=== PATIENT | male | born 1995 | race African-American/Black ===

== ENCOUNTER 2018-07-19 16:09 | Emergency (ER) | payer SELFPAY ==
[~2018-07-19] VITALS: Ht 172.7 cm; Wt 80.0 kg
[2018-07-19] MEDS ORDERED: IBUPROFEN 600MG TABLET PO ONE (17:15)
[2018-07-19 18:07] VITALS: BP 122/59
== END 2018-07-19 18:09 | disposition home or self-care (01) ==
LOC: ER 16:09
DX: S93.402A Sprain of unspecified ligament of left ankle, initial encounter (principal); V29.88XA Motorcycle rider (driver) (passenger) injured in other specified transport accidents, initial encounter; Y93.89 Activity, other specified; Y92.488 Other paved roadways as the place of occurrence of the external cause
CPT/HCPCS: 73610; 99283

== ENCOUNTER 2021-01-15 00:36 | Emergency (ER) | payer MEDICAID, OTHER ==
[~2021-01-15] VITALS: Ht 170.2 cm; Wt 54.0 kg
[2021-01-15] MEDS ORDERED: FAMO-135 MT (01:15)
[2021-01-15 01:18] VITALS: BP 120/60
== END 2021-01-15 01:51 | disposition home or self-care (01) ==
LOC: ER 00:36
DX: R10.9 Unspecified abdominal pain (principal); R11.10 Vomiting, unspecified
CPT/HCPCS: 99283

== ENCOUNTER 2021-01-24 21:31 | Emergency (ER) | payer MEDICAID ==
[~2021-01-24] VITALS: Ht 170.2 cm; Wt 65.0 kg
[~2021-01-24 21:31] MED LIST: FAMO-135 MT
[2021-01-25 01:12] LABS: BASOPHILS % 0.5 % (0.0-2.0); HEMOGLOBIN. 16.6 g/dL (14.0-18.0); LYMPHOCYTES % 13.7 % (20.0-50.0); MEAN CORPUSCULAR HEMOGLOBIN 27.8 pg (28.0-32.0); MEAN PLATELET VOLUME 9.4 fl (7.4-10.4); MONOCYTES % 5.8 % (2.0-8.0); PLATELET 266 x1000/uL (130-400); RED BLOOD CELL COUNT 5.97 mill/uL (4.7-6.1); RED CELL DISTRIBUTION WIDTH 13.3 % (11.6-14.6)
[2021-01-25 01:16] LABS: CHLORIDE 103 mEq/L (98-107)
[2021-01-25 01:21] LABS: ETHANOL BLOOD < 10 mg/dL
[2021-01-25 02:42] LABS: CLARITY URINE CLEAR (CLEAR); COLOR URINE YELLOW (YELLOW); KETONES URINE 4+ (NEGATIVE); LEUKOCYTE ESTERASE URINE NEGATIVE (NEGATIVE); NITRITE URINE NEGATIVE (NEGATIVE); OCCULT BLOOD URINE NEGATIVE (NEGATIVE); PH URINE 5.5 (4.5-8.0); PROTEIN URINE NEGATIVE (NEGATIVE); SPECIFIC GRAVITY URINE 1.016 (1.005-1.030); UROBILINOGEN URINE 0.2 E.U./dL (0.2-1.0)
[2021-01-25 03:21] LABS: *AMPHETAMINES SCREEN URINE NEGATIVE (NEGATIVE); *BARBITURATES SCREEN URINE NEGATIVE (NEGATIVE); *BENZODIAZEPINES SCREEN URINE NEGATIVE (NEGATIVE); METHADONE URINE SCREEN NEGATIVE (NEGATIVE)
[2021-01-25 03:22] LABS: CANNABINOID URINE SCREEN PRESUMTIVE POSITIVE (NEGATIVE); OPIATES URINE SCREEN NEGATIVE (NEGATIVE); PHENCYCLIDINE URINE SCREEN NEGATIVE (NEGATIVE)
[2021-01-25 03:23] LABS: *COCAINE SCREEN URINE NEGATIVE (NEGATIVE)
[2021-01-25] MEDS ORDERED: OLANZAPINE 5MG TABLET PO SCH (04:30)
[2021-01-25] MEDS: OLANZAPINE 5MG TABLET ODT PO SCH (10:26)
[2021-01-25] MEDS: VALPROATE SODIUM 250MG/5ML UDC PO SCH ×2 (10:26→17:42)
[2021-01-26] MEDS: OLANZAPINE 5MG TABLET ODT PO SCH (09:17)
[2021-01-26] MEDS: VALPROATE SODIUM 250MG/5ML UDC PO SCH ×2 (09:38→17:23)
[2021-01-26] MEDS ORDERED: DIPHENHYDRAMINE 50MG CAPSULE PO ONE (20:45)
[2021-01-27] MEDS: OLANZAPINE 5MG TABLET ODT PO SCH (08:45)
[2021-01-27] MEDS: VALPROATE SODIUM 250MG/5ML UDC PO SCH (08:45)
[2021-01-27 12:30] VITALS: BP 115/74
== END 2021-01-27 13:11 ==
LOC: ER 21:31
DX: F23 Brief psychotic disorder (principal); R45.850 Homicidal ideations; Z20.822 Contact with and (suspected) exposure to COVID-19; F31.64 Bipolar disorder, current episode mixed, severe, with psychotic features; Z63.79 Other stressful life events affecting family and household; F12.90 Cannabis use, unspecified, uncomplicated; Z71.89 Other specified counseling
CPT/HCPCS: 99285; Q0163

== ENCOUNTER 2021-08-06 13:13 | Emergency (ER) | payer MEDICAID ==
[~2021-08-06] VITALS: Ht 177.8 cm; Wt 64.0 kg
[2021-08-06] MEDS ORDERED: TOPUD MT (16:58)
[2021-08-06 17:40] VITALS: BP 132/79
[2021-08-08] MEDS ORDERED: HYDR-4001 MT (15:24)
== END 2021-08-06 17:46 | disposition home or self-care (01) ==
LOC: ER 13:13
DX: F07.81 Postconcussional syndrome (principal)
CPT/HCPCS: 99284

== ENCOUNTER 2021-11-27 22:08 | Emergency (ER) | payer MEDICAID ==
[~2021-11-27] VITALS: Ht 167.6 cm; Wt 55.0 kg
[~2021-11-27 22:08] MED LIST changes: +TOPUD MT
[2021-11-28] MEDS ORDERED: MAGNESIUM/ALUMINUM HYDROXIDE/SIMETHICONE 30ML UDC PO STA (06:46)
[2021-11-28 08:28] LABS: BASOPHILS % 0.3 % (0.0-2.0); EOSINOPHILS % 0.2 % (0.0-5.0); HEMATOCRIT. 47.2 % (42.0-52.0); HEMOGLOBIN. 16.9 g/dL (14.0-18.0); LYMPHOCYTES % 14.2 % (20.0-50.0); MEAN CORPUSCULAR HEMOGLOBIN 27.7 pg (28.0-32.0); MEAN CORPUSCULAR VOLUME 77.3 fL (80.0-94.0); MEAN PLATELET VOLUME 9.7 fl (7.4-10.4); MONOCYTES % 5.4 % (2.0-8.0); NEUTROPHILS % 79.9 % (40.0-76.0); PLATELET 266 x1000/uL (130-400); RED CELL DISTRIBUTION WIDTH 13.6 % (11.6-14.6)
[2021-11-28 08:34] LABS: CHLORIDE 98 mEq/L (98-107)
[2021-11-28 08:41] LABS: ETHANOL BLOOD < 10 mg/dL
[2021-11-28] MEDS ORDERED: POTASSIUM CHLORIDE 20MEQ TABLET SR PO ONE (08:45)
[2021-11-28 09:52] VITALS: BP 115/64
== END 2021-11-28 09:53 | disposition home or self-care (01) ==
LOC: ER 22:08
DX: R53.1 Weakness (principal); E87.6 Hypokalemia; R10.13 Epigastric pain; R53.83 Other fatigue; R42 Dizziness and giddiness; F20.9 Schizophrenia, unspecified; Z91.14 Patient's other noncompliance with medication regimen
CPT/HCPCS: 36415; 71045; 80053; 80320; 85025; 99284; G0480

== ENCOUNTER 2021-12-01 09:42 | Emergency (ER) | payer MEDICAID ==
[~2021-12-01] VITALS: Ht 170.2 cm; Wt 59.0 kg
[2021-12-01] MEDS ORDERED: HALOPERIDOL LACTATE 5MG/ML VIAL IM STA (10:24)
[2021-12-01] MEDS ORDERED: OLANZAPINE 10 MG/VIAL IM ONE (11:00)
[2021-12-01 12:04] LABS: CHLORIDE 98 mEq/L (98-107)
[2021-12-01 12:10] LABS: BASOPHILS % 0.3 % (0.0-2.0); EOSINOPHILS % 0.2 % (0.0-5.0); HEMATOCRIT. 43.9 % (42.0-52.0); HEMOGLOBIN. 15.7 g/dL (14.0-18.0); LYMPHOCYTES % 9.5 % (20.0-50.0); MEAN CORPUSCULAR HEMOGLOBIN 27.5 pg (28.0-32.0); MEAN PLATELET VOLUME 10.3 fl (7.4-10.4); MONOCYTES % 5.8 % (2.0-8.0); NEUTROPHILS % 84.2 % (40.0-76.0); PLATELET 207 x1000/uL (130-400); RED CELL DISTRIBUTION WIDTH 13.3 % (11.6-14.6)
[2021-12-01 12:12] LABS: ETHANOL BLOOD < 10 mg/dL
[2021-12-01] MEDS ORDERED: POTASSIUM CHLORIDE 20MEQ TABLET SR PO ONE (15:00)
[2021-12-01] MEDS ORDERED: HALOPERIDOL LACTATE 5MG/ML VIAL IM ONE ×2 (15:45→23:15)
[2021-12-01] MEDS: POTASSIUM CHLORIDE 20MEQ TABLET SR PO NR ×2 (16:53→19:23)
[2021-12-01 17:43] LABS: CLARITY URINE CLEAR (CLEAR); COLOR URINE DARK YELLOW (YELLOW); KETONES URINE 3+ (NEGATIVE); LEUKOCYTE ESTERASE URINE NEGATIVE (NEGATIVE); NITRITE URINE NEGATIVE (NEGATIVE); OCCULT BLOOD URINE NEGATIVE (NEGATIVE); PROTEIN URINE 2+ (NEGATIVE); SPECIFIC GRAVITY URINE 1.033 (1.005-1.030)
[2021-12-01 18:10] LABS: *AMPHETAMINES SCREEN URINE NEGATIVE (NEGATIVE); *BARBITURATES SCREEN URINE NEGATIVE (NEGATIVE); *BENZODIAZEPINES SCREEN URINE NEGATIVE (NEGATIVE); *COCAINE SCREEN URINE NEGATIVE (NEGATIVE); CANNABINOID URINE SCREEN PRESUMTIVE POSITIVE (NEGATIVE); METHADONE URINE SCREEN NEGATIVE (NEGATIVE); OPIATES URINE SCREEN NEGATIVE (NEGATIVE); PHENCYCLIDINE URINE SCREEN NEGATIVE (NEGATIVE)
[2021-12-02] MEDS ORDERED: HALOPERIDOL LACTATE 5MG/ML VIAL IM ONE (00:30)
[2021-12-02] MEDS ORDERED: DIAZEPAM 5 MG/ML 2ML CPJ IM ONE (00:30)
[2021-12-02] MEDS ORDERED: DIPHENHYDRAMINE 50MG/ML VIAL IM ONE (00:45)
[2021-12-02] MEDS ORDERED: OLANZAPINE 10 MG/VIAL IM ONE (06:45)
[2021-12-02] MEDS ORDERED: MIDAZOLAM HCL 2 MG/2 ML VIAL IM ONE (06:45)
[2021-12-02] MEDS: OLANZAPINE 5MG TABLET ODT PO SCH (17:24)
[2021-12-02] MEDS ORDERED: QUETIAPINE FUMARATE 50MG TABLET PO STA (19:40)
[2021-12-02] MEDS ORDERED: QUETIAPINE FUMARATE 50MG TABLET PO NR (22:45)
[2021-12-03] MEDS ORDERED: ZIPRASIDONE MESYLATE 20MG/VIAL IM ONE (02:15)
[2021-12-03] MEDS: OLANZAPINE 5MG TABLET ODT PO SCH (08:25)
[2021-12-03 11:11] VITALS: BP 128/90
== END 2021-12-03 11:31 ==
LOC: ER 09:51
DX: F29 Unspecified psychosis not due to a substance or known physiological condition (principal); F20.9 Schizophrenia, unspecified; F31.9 Bipolar disorder, unspecified; Z20.822 Contact with and (suspected) exposure to COVID-19
CPT/HCPCS: 36415; 80053; 80305; 80307; 80320; 80329; 81003; 85025; 96372; 99285; C9803; J1200; J1630; J2250; J3486; J3490; U0003; U0005; Z7610; G0480

== ENCOUNTER 2022-05-11 02:29 | Emergency (ER) | payer MEDICAID ==
[~2022-05-11] VITALS: Ht 162.6 cm; Wt 54.1 kg
[2022-05-11 02:43] VITALS: BP 120/85
== END 2022-05-11 03:17 | disposition left against medical advice (07) ==
LOC: ER 02:29
DX: Z53.21 Procedure and treatment not carried out due to patient leaving prior to being seen by health care provider (principal)

== ENCOUNTER 2024-09-13 22:16 | Emergency (ER) | payer MEDICAID, OTHER ==
[~2024-09-13] VITALS: Ht 165.1 cm; Wt 59.0 kg
[2024-09-13 22:44] VITALS: O2SAT 98
[2024-09-14 00:01] LABS: CLARITY URINE CLEAR (CLEAR); COLOR URINE DARK YELLOW (YELLOW); GLUCOSE URINE NEGATIVE (NEGATIVE); KETONES URINE TRACE (NEGATIVE); LEUKOCYTE ESTERASE URINE NEGATIVE (NEGATIVE); NITRITE URINE NEGATIVE (NEGATIVE); OCCULT BLOOD URINE NEGATIVE (NEGATIVE); PH URINE 5.5 (4.5-8.0); PROTEIN URINE 1+ (NEGATIVE); SPECIFIC GRAVITY URINE 1.035 (1.005-1.030)
[2024-09-14 00:08] LABS: *AMPHETAMINES SCREEN URINE NEGATIVE (NEGATIVE); *BARBITURATES SCREEN URINE NEGATIVE (NEGATIVE); *BENZODIAZEPINES SCREEN URINE NEGATIVE (NEGATIVE); *COCAINE SCREEN URINE NEGATIVE (NEGATIVE); METHADONE URINE SCREEN NEGATIVE (NEGATIVE); OPIATES URINE SCREEN NEGATIVE (NEGATIVE)
[2024-09-14 00:09] LABS: BASOPHILS % 0.5 % (0.0-2.0); DIFFERENTIAL COMMENT 0; EOSINOPHILS % 1.5 % (0.0-5.0); HEMATOCRIT. 43.7 % (42.0-52.0); HEMOGLOBIN. 15.6 g/dL (14.0-18.0); LYMPHOCYTES % 19.7 % (20.0-50.0); MEAN CORPUSCULAR HEMOGLOBIN 28.6 pg (28.0-32.0); MEAN CORPUSCULAR HGB CONC 35.8 g/dL (31.0-37.0); MEAN CORPUSCULAR VOLUME 79.9 fL (80.0-94.0); MEAN PLATELET VOLUME 9.1 fl (7.4-10.4); MONOCYTES % 7.8 % (2.0-8.0); NEUTROPHILS % 70.5 % (40.0-76.0); PLATELET 231 x1000/uL (130-400); RED BLOOD CELL COUNT 5.48 mill/uL (4.7-6.1); RED CELL DISTRIBUTION WIDTH 14.4 % (11.6-14.6); WHITE BLOOD COUNT 12.1 x1000/uL (4.5-11.0)
[2024-09-14 00:09] LABS: CANNABINOID URINE SCREEN PRESUMPTIVE POSITIVE (NEGATIVE); ECSTASY MDMA SCREEN URINE NEGATIVE (NEGATIVE); PHENCYCLIDINE URINE SCREEN NEGATIVE (NEGATIVE)
[2024-09-14 00:11] LABS: CHLORIDE 105 mEq/L (98-107); POTASSIUM 3.5 mEq/L (3.5-5.1); SODIUM 140 mEq/L (136-145)
[2024-09-14 00:12] LABS: CALCIUM 10.3 mg/dL (8.7-10.4); CARBON DIOXIDE 26 mEq/L (21-32)
[2024-09-14 00:17] LABS: CREATININE 0.9 mg/dL (0.6-1.3); GLUCOSE 95 mg/dL (70-105); UREA NITROGEN BLOOD 8 mg/dL (9-23)
[2024-09-14 00:18] LABS: ETHANOL BLOOD < 10 mg/dL (<10)
[2024-09-14 00:19] LABS: ACETAMINOPHEN < 2 ug/mL (10-30)
[2024-09-14 00:28] LABS: SQUAMOUS EPITHELIAL CELL URINE NONE SEEN /lpf (RARE/1+); WBC URINE 0-2 /hpf (0-2)
[2024-09-14 00:29] LABS: BACTERIA URINE NONE SEEN; CALCIUM OXALATE CRYSTALS URINE 1+ /lpf
[2024-09-14 00:30] LABS: MUCUS URINE 2+ /lpf (NONE/TRACE)
[2024-09-14] MEDS ORDERED: LORAZEPAM 2MG/ML INJ IM ONE (11:15)
[2024-09-14] MEDS: LORAZEPAM 2MG/ML UD SYRINGE IM NR (11:26)
[2024-09-14] MEDS: OLANZAPINE 10 MG/VIAL IM ONE ×2 (11:26→21:19)
[2024-09-14] MEDS: DIPHENHYDRAMINE 50MG/ML VIAL IM ONE (21:19)
[2024-09-14 21:29] VITALS: BP 109/56; PULSE 64; RESP 16; TEMP 36.8; O2SAT 99
== END 2024-09-14 21:44 ==
LOC: ER 22:16
DX: F20.9 Schizophrenia, unspecified (principal); Z59.00 Homelessness unspecified; Z20.822 Contact with and (suspected) exposure to COVID-19; Z79.899 Other long term (current) drug therapy
CPT/HCPCS: 80305; 80048; 81003; 80307; 80329; 80320; 85025; 36415; 99285; 87426; 96372; J3490; J1200; J2060; Z7610; G0480